=== PATIENT | female | born 1935 | race Caucasian/White ===

== ENCOUNTER 2021-01-23 22:11 | Emergency (ER) | payer OTHER | END 2021-01-24 00:16 | LOC: ERS 22:11 | DX: E11.65 Type 2 diabetes mellitus with hyperglycemia (principal); I10 Essential (primary) hypertension; E03.9 Hypothyroidism, unspecified | CPT/HCPCS: 36416; 99284 ==

== ENCOUNTER 2021-08-08 15:10 | Inpatient (IN) | payer MEDICARE, OTHER ==
[~2021-08-08 15:10] MED LIST: Iopamidol-370 76% 500 ML 1 ML ONE
[2021-08-08] MEDS ORDERED: Ondansetron ODT 4 MG TAB ONE (15:29)
[2021-08-08 16:19] LABS: #Basophils 0.1 thou/uL (0.0-0.2); #Eosinphils 0.3 thou/uL (0.0-0.7); #Lymphocytes 0.8 thou/uL (1.20-3.40); #Monocytes 0.4 thou/uL (0.11-0.59); #Neutrophils 7.9 thou/uL (1.40-6.50); %Basophils 0.6 % (0.0-1.0); %Lymphocytes 8.7 % (21.0-51.0); %Monocytes 4.5 % (0.0-10.0); %Neutrophils 83.2 % (42.0-75.0); Hemoglobin 11.9 g/dL (12.0-16.0); Mean Corpuscular Hemoglobin 30.9 pg (27.0-31.0); Mean Corpuscular Volume 96.7 fL (78.0-98.0); Mean Platelet Volume 8.6 fL (7.4-10.4); Platelet Count 226 thou/uL (130-400); RBC Distribution Width 13.2 % (11.5-14.5); Red Blood Cell (RBC) Count 3.86 mill/uL (4.20-5.40); White Blood Cell (WBC) Count 9.5 thou/uL (4.8-10.8)
[2021-08-08 16:27] LABS: PTT 24.2 sec (22.9-36.1); Prothrombin Time 11.8 sec (12.0-14.7)
[2021-08-08 16:28] LABS: INR-International Normal Ratio 0.9
[2021-08-08] MEDS ORDERED: cefTRIAXone\\ROCEPHIN 2 GM VIAL ONE (16:30)
[2021-08-08 16:41] LABS: ALT (SGPT) 16 U/L (8-55); AST (SGOT) 22 U/L (5-34); Albumin 4.3 g/dL (3.4-4.8); Alkaline Phosphatase 60 U/L (40-110); Anion Gap 15 mmol/L (10-20); BUN (Urea Nitrogen) 28 mg/dL (9.8-20.1); Bilirubin, Total 0.6 mg/dL (0.2-1.2); Calc. Creatinine Clearance 0 mL/min (70-130); Calcium 9.5 mg/dL (7.8-10.44); Carbon Dioxide 27 mmol/L (23-31); Chloride 97 mmol/L (98-107); Globulin 3.2 g/dL (2.4-3.5); Glucose 245 mg/dL (83-110); Magnesium 1.8 mg/dL (1.6-2.6); Potassium 4.4 mmol/L (3.5-5.1); Protein, Total 7.5 g/dL (5.8-8.1); Sodium 135 mmol/L (136-145)
[2021-08-08] MEDS ORDERED: hydrALAZINE 20 MG/ML VIAL ONE (17:25)
[2021-08-08] MEDS ORDERED: Moisturizing Cream (Eucerin) 113 GM JAR TOP PRN (17:41)
[2021-08-08] MEDS ORDERED: hydrALAZINE 20 MG/ML VIAL SLOW IVP PRN (17:41)
[2021-08-08] MEDS ORDERED: Ondansetron ODT 4 MG TAB PO PRN (17:41)
[2021-08-08] MEDS ORDERED: Acetaminophen 325 MG TAB PO PRN (17:41)
[2021-08-08] MEDS ORDERED: Ondansetron PF 4 MG/2 ML Vial IVP PRN (17:41)
[2021-08-08] MEDS ORDERED: Acetaminophen 650 MG Suppository PR PRN (17:41)
[2021-08-08] MEDS ORDERED: Labetalol HCl 100 MG/20 ML VIAL SLOW IVP PRN (17:41)
[2021-08-08] MEDS ORDERED: Artificial Tear Sol 15 ML BOT EA EYE PRN (17:41)
[2021-08-08] MEDS ORDERED: Senokot S 8.6-50 MG TAB PO PRN (17:41)
[2021-08-08] MEDS ORDERED: Bisacodyl 5 MG TAB PO PRN (17:41)
[2021-08-08] MEDS ORDERED: Enoxaparin Sodium 40 MG/0.4 ML SYRINGE SC SCH (17:45)
[2021-08-08 18:19] LABS: Bacteria/HPF None Seen HPF (None Seen); Bilirubin Negative (Negative); Blood, Urine Negative (Negative); Clarity Clear (Clear); Glucose, Urine (Dipstick) 300 mg/dL (Negative); Ketone, Urine Trace mg/dL (Negative); Leukocyte Negative Leu/uL (Negative); Nitrite Negative (Negative); Protein, Urine (Dipstick) 20 mg/dL (Neg-Trace); RBC/HPF 0-3 HPF (0-3); Specific Gravity, Urine 1.028 (1.002-1.036); Squamous Epithelial None Seen HPF (0-3); Urobilinogen Normal mg/dL (Less than 2); WBC/HPF 0-3 HPF (0-3); pH, Urine 7.5 (5.0-9.0)
[2021-08-08 18:43] LABS: Troponin I 0.121 ng/mL (< 0.028)
[2021-08-08] MEDS ORDERED: Dextrose 5% in Water 1,000 ML IV PRN (19:37)
[2021-08-08] MEDS ORDERED: Dextrose 50% Abboject 50 ML SYRINGE SLOW IVP PRN (19:37)
[2021-08-08] MEDS ORDERED: Lactated Ringer's 1,000 ML IV SCH ×2 (19:45→20:00)
[2021-08-08] MEDS ORDERED: Piperacillin/Tazobactam 3.375 GM in Sodium Chloride 0.9% 100 ML IVPB SCH ×2 (20:00→23:59)
[2021-08-08 20:16] LABS: Actual Bicarbonate (HCO3a) 25.8 mEq/L (22-28); Analyzer IN Cardio ER; Base Excess (BEa) 1.5 mEq/L (-2.0 to +3.0); CO2 Tension 39.4 mmHg (35.0-45.0); Calcium, Ionized (arterial) 1.12 mmol/L (1.12-1.30); Carboxyhemoglobin (COHb) 0.3 gm% (0.0-3.0); Hemoglobin (Hb) 12.3 g/dL (12.0-16.0); O2 Tension (PaO2), arterial 92.4 mmHg (> 60.0); Potassium - ABG Lab 3.98 mmol/L (3.70-5.30); pH, Arterial 7.43 (7.35-7.45)
[2021-08-08 20:17] LABS: Puncture Site RRA
[2021-08-08 20:34] LABS: Magnesium 1.8 mg/dL (1.6-2.6); Phosphorus 3.3 mg/dL (2.3-4.7)
[2021-08-08 20:40] LABS: Troponin I 0.282 ng/mL (< 0.028)
[2021-08-08] MEDS ORDERED: Enoxaparin Sodium 60 MG/0.6 ML SYRINGE SC SCH (21:00)
[2021-08-08] MEDS ORDERED: Famotidine/PF 20 mg/2ml Vial SLOW IVP SCH (21:00)
[2021-08-08] MEDS ORDERED: Famotidine 40 MG/4 ML VIAL SLOW IVP SCH (21:00)
[2021-08-08 22:12] VITALS: BMI 21.1
[2021-08-08 23:34] LABS: SARS-CoV-2 NAA Rapid Test Not Detected (NotDetected)
[2021-08-08 23:43] LABS: Troponin I 0.931 ng/mL (< 0.028)
[2021-08-09] MEDS: Lactated Ringer's 1,000 ML IV SCH ×3 (01:56→23:39)
[2021-08-09] MEDS: Piperacillin/Tazobactam 3.375 GM in Sodium Chloride 0.9% 100 ML IVPB SCH ×3 (01:56→17:13)
[2021-08-09 04:56] LABS: #Lymphocytes 0.7 thou/uL (1.20-3.40); #Monocytes 0.4 thou/uL (0.11-0.59); #Neutrophils 7.3 thou/uL (1.40-6.50); %Basophils 0.2 % (0.0-1.0); %Eosinophils 0.3 % (0.0-10.0); %Lymphocytes 7.8 % (21.0-51.0); %Monocytes 5.1 % (0.0-10.0); %Neutrophils 86.6 % (42.0-75.0); Hemoglobin 10.9 g/dL (12.0-16.0); Mean Corpuscular HGB CONC 31.6 g/dL (32.0-36.0); Mean Corpuscular Hemoglobin 31.6 pg (27.0-31.0); Mean Platelet Volume 9.1 fL (7.4-10.4); Platelet Count 207 thou/uL (130-400); RBC Distribution Width 13.5 % (11.5-14.5); Red Blood Cell (RBC) Count 3.46 mill/uL (4.20-5.40); White Blood Cell (WBC) Count 8.5 thou/uL (4.8-10.8)
[2021-08-09 05:23] LABS: Hemoglobin A1c 8.2 % (4.0-6.0)
[2021-08-09 05:47] LABS: ALT (SGPT) 14 U/L (8-55); AST (SGOT) 40 U/L (5-34); Albumin 3.5 g/dL (3.4-4.8); Alkaline Phosphatase 50 U/L (40-110); Anion Gap 23 mmol/L (10-20); BUN (Urea Nitrogen) 28 mg/dL (9.8-20.1); Bilirubin, Total 0.6 mg/dL (0.2-1.2); Calc. Creatinine Clearance 30 mL/min (70-130); Calcium 8.9 mg/dL (7.8-10.44); Carbon Dioxide 18 mmol/L (23-31); Cardiac Risk 2.6 (Less than 4.5); Chloride 100 mmol/L (98-107); Cholesterol 189 mg/dl (< 200 Desired); Globulin 3.4 g/dL (2.4-3.5); Glucose 345 mg/dL (83-110); HDL Cholesterol 73 mg/dL (>60 Neg Risk); LDL Cholesterol, Calculated 106 mg/dL; Potassium 4.8 mmol/L (3.5-5.1); Protein, Total 6.9 g/dL (5.8-8.1); Sodium 136 mmol/L (136-145); Triglycerides 49 mg/dL (Less than 150)
[2021-08-09] MEDS: HumaLOG 300 UNITS/3 ML VIAL SC PRN ×4 (06:19→21:42)
[2021-08-09] MEDS ORDERED: Carvedilol 3.125 MG TAB PO SCH (07:30)
[2021-08-09] MEDS ORDERED: Nitroglycerin 0.4 MG TAB (25 Tab Bottle) SL PRN (08:16)
[2021-08-09] MEDS ORDERED: Non-Formulary Item 1 EACH (Levothyroxine Sodium [Levothyroxine] 100 MCG Capsule) PO SCH (09:00)
[2021-08-09] MEDS ORDERED: Enoxaparin Sodium 40 MG/0.4 ML SYRINGE SC SCH (09:00)
[2021-08-09] MEDS: Aspirin Chewable 81 MG TAB PO SCH (09:54)
[2021-08-09] MEDS: Aspirin 300 MG Suppository PR SCH (09:54)
[2021-08-09] MEDS: Carvedilol 3.125 MG TAB PO SCH ×3 (09:54→17:13)
[2021-08-09] MEDS: Multivit, Therapeutic 1 TAB PO SCH (09:55)
[2021-08-09] MEDS: Clopidogrel Bisulfate 75 MG TAB PO SCH ×2 (09:55→12:01)
[2021-08-09] MEDS: Lisinopril 20 MG TAB PO SCH (09:55)
[2021-08-09] MEDS: Famotidine 20 MG TAB PO SCH (09:55)
[2021-08-09] MEDS: Insulin Glargine 30 UNITS/0.3 ML VIAL SC SCH (09:55)
[2021-08-09 12:17] LABS: Troponin I 2.824 ng/mL (< 0.028)
[2021-08-09] MEDS ORDERED: cefTRIAXone\\ROCEPHIN 1 GM in Sodium Chloride 0.9% 100 ML IVPB SCH (16:00)
[2021-08-09] MEDS ORDERED: Glycerin Adult Supp. (24 ct jar) PR PRN (16:29)
[2021-08-09] MEDS: Atorvastatin Calcium 10 MG TAB PO SCH (20:47)
[2021-08-09] MEDS: Donepezil HCl 5 MG TAB PO SCH (20:47)
[2021-08-10] MEDS: Piperacillin/Tazobactam 3.375 GM in Sodium Chloride 0.9% 100 ML IVPB SCH ×3 (01:22→17:43)
[2021-08-10 04:45] LABS: #Basophils 0.1 thou/uL (0.0-0.2); #Eosinphils 0.3 thou/uL (0.0-0.7); #Lymphocytes 0.8 thou/uL (1.20-3.40); #Monocytes 0.9 thou/uL (0.11-0.59); #Neutrophils 7.6 thou/uL (1.40-6.50); %Basophils 1.1 % (0.0-1.0); %Eosinophils 2.9 % (0.0-10.0); %Lymphocytes 8.2 % (21.0-51.0); %Monocytes 9.3 % (0.0-10.0); %Neutrophils 78.5 % (42.0-75.0); Hemoglobin 9.9 g/dL (12.0-16.0); Mean Corpuscular HGB CONC 32.8 g/dL (32.0-36.0); Mean Corpuscular Volume 97.7 fL (78.0-98.0); Mean Platelet Volume 8.6 fL (7.4-10.4); Platelet Count 177 thou/uL (130-400); RBC Distribution Width 13.4 % (11.5-14.5); Red Blood Cell (RBC) Count 3.07 mill/uL (4.20-5.40); White Blood Cell (WBC) Count 9.6 thou/uL (4.8-10.8)
[2021-08-10 05:18] LABS: ALT (SGPT) 11 U/L (8-55); AST (SGOT) 26 U/L (5-34); Albumin 3.2 g/dL (3.4-4.8); Alkaline Phosphatase 41 U/L (40-110); Anion Gap 17 mmol/L (10-20); BUN (Urea Nitrogen) 30 mg/dL (9.8-20.1); Bilirubin, Total 1.1 mg/dL (0.2-1.2); Calc. Creatinine Clearance 35 mL/min (70-130); Calcium 8.2 mg/dL (7.8-10.44); Carbon Dioxide 24 mmol/L (23-31); Chloride 101 mmol/L (98-107); Globulin 2.4 g/dL (2.4-3.5); Glucose 166 mg/dL (83-110); Potassium 3.2 mmol/L (3.5-5.1); Protein, Total 5.6 g/dL (5.8-8.1); Sodium 139 mmol/L (136-145)
[2021-08-10] MEDS: Levothyroxine Sodium 100 MCG TAB PO SCH (05:32)
[2021-08-10] MEDS: HumaLOG 300 UNITS/3 ML VIAL SC PRN ×5 (05:35→20:40)
[2021-08-10] MEDS ORDERED: Potassium Chloride 20 MEQ TAB PO SCH (08:00)
[2021-08-10] MEDS: Enoxaparin Sodium 40 MG/0.4 ML SYRINGE SC SCH (09:37)
[2021-08-10] MEDS: Aspirin Chewable 81 MG TAB PO SCH (09:38)
[2021-08-10] MEDS: Aspirin 300 MG Suppository PR SCH (09:38)
[2021-08-10] MEDS: Clopidogrel Bisulfate 75 MG TAB PO SCH (09:39)
[2021-08-10] MEDS: Multivit, Therapeutic 1 TAB PO SCH (09:39)
[2021-08-10] MEDS: Lisinopril 20 MG TAB PO SCH (09:39)
[2021-08-10] MEDS: Famotidine 20 MG TAB PO SCH (09:39)
[2021-08-10] MEDS: Carvedilol 3.125 MG TAB PO SCH ×2 (09:39→17:43)
[2021-08-10] MEDS: Insulin Glargine 30 UNITS/0.3 ML VIAL SC SCH (09:40)
[2021-08-10] MEDS ORDERED: Polyethylene Glycol 3350 17 GM Packet PO SCH (10:30)
[2021-08-10] MEDS: Atorvastatin Calcium 10 MG TAB PO SCH (20:40)
[2021-08-10] MEDS: Donepezil HCl 5 MG TAB PO SCH (20:40)
[2021-08-11] MEDS: Piperacillin/Tazobactam 3.375 GM in Sodium Chloride 0.9% 100 ML IVPB SCH ×2 (02:23→09:57)
[2021-08-11] MEDS: Levothyroxine Sodium 100 MCG TAB PO SCH (05:33)
[2021-08-11] MEDS: HumaLOG 300 UNITS/3 ML VIAL SC PRN (05:33)
[2021-08-11 06:09] LABS: Anion Gap 18 mmol/L (10-20); BUN (Urea Nitrogen) 26 mg/dL (9.8-20.1); Calc. Creatinine Clearance 38 mL/min (70-130); Calcium 8.6 mg/dL (7.8-10.44); Carbon Dioxide 18 mmol/L (23-31); Chloride 106 mmol/L (98-107); Glucose 159 mg/dL (83-110); Potassium 4.3 mmol/L (3.5-5.1); Sodium 138 mmol/L (136-145)
[2021-08-11] MEDS ORDERED: Polyethylene Glycol 3350 17 GM Packet PO SCH (09:00)
[2021-08-11] MEDS: Enoxaparin Sodium 40 MG/0.4 ML SYRINGE SC SCH (09:57)
[2021-08-11] MEDS: Aspirin Chewable 81 MG TAB PO SCH (09:58)
[2021-08-11] MEDS: Multivit, Therapeutic 1 TAB PO SCH (09:58)
[2021-08-11] MEDS: Carvedilol 3.125 MG TAB PO SCH (09:58)
[2021-08-11] MEDS: Lisinopril 20 MG TAB PO SCH (09:58)
[2021-08-11] MEDS: Famotidine 20 MG TAB PO SCH (09:58)
[2021-08-11] MEDS: Clopidogrel Bisulfate 75 MG TAB PO SCH (09:58)
[2021-08-11] MEDS: Insulin Glargine 30 UNITS/0.3 ML VIAL SC SCH (09:59)
[2021-08-11 12:07] VITALS: BP 134/59; TEMP 98.4
== END 2021-08-11 15:32 | disposition home or self-care (01) | DRG 177 ==
LOC: ERS 15:10 → ERHOLD 17:17 → 2NO 20:14
PROVIDERS: ADMIT Family Medicine; ATTEND Internal Medicine
DX: J69.0 Pneumonitis due to inhalation of food and vomit (principal); I21.4 Non-ST elevation (NSTEMI) myocardial infarction; J96.01 Acute respiratory failure with hypoxia; I50.22 Chronic systolic (congestive) heart failure; G93.40 Encephalopathy, unspecified; I13.0 Hypertensive heart and chronic kidney disease with heart failure and stage 1 through stage 4 chronic kidney disease, or unspecified chronic kidney disease; Z20.822 Contact with and (suspected) exposure to COVID-19; F03.90 Unspecified dementia, unspecified severity, without behavioral disturbance, psychotic disturbance, mood disturbance, and anxiety; I25.10 Atherosclerotic heart disease of native coronary artery without angina pectoris; E03.9 Hypothyroidism, unspecified; E78.5 Hyperlipidemia, unspecified; E11.22 Type 2 diabetes mellitus with diabetic chronic kidney disease; Z66 Do not resuscitate; D63.1 Anemia in chronic kidney disease; N18.30 Chronic kidney disease, stage 3 unspecified; Z79.4 Long term (current) use of insulin; Z95.1 Presence of aortocoronary bypass graft; Z90.49 Acquired absence of other specified parts of digestive tract; Z98.890 Other specified postprocedural states; Z85.3 Personal history of malignant neoplasm of breast; Z80.9 Family history of malignant neoplasm, unspecified; Z79.890 Hormone replacement therapy; Z79.01 Long term (current) use of anticoagulants; Z79.899 Other long term (current) drug therapy; Z81.8 Family history of other mental and behavioral disorders; Z79.82 Long term (current) use of aspirin
CPT/HCPCS: 36415; 36416; 36600; 70450; 71045; 74177; 76705; 80048; 80053; 80061; 82805; 83036; 83605; 83690; 83735; 84100; 84145; 84443; 84484; 85025; 85379; 85610; 85730; 86850; 86900; 86901; 87040; 87086; 93005; 93010; 93306; 94760; J0360; J0696; J1650; J1815; J2543; J3490; J7120; Q0162; Q9967; U0002

== ENCOUNTER 2021-08-30 15:02 | Inpatient (IN) | payer MEDICARE, OTHER ==
[2021-08-30 16:45] LABS: ALT (SGPT) 13 U/L (8-55); AST (SGOT) 49 U/L (5-34); Alkaline Phosphatase 58 U/L (40-110); Anion Gap 24 mmol/L (10-20); BUN (Urea Nitrogen) 50 mg/dL (9.8-20.1); Bilirubin, Total 0.6 mg/dL (0.2-1.2); Calc. Creatinine Clearance 0 mL/min (70-130); Calcium 10.3 mg/dL (7.8-10.44); Carbon Dioxide 24 mmol/L (23-31); Chloride 92 mmol/L (98-107); Estimated GFR 21; Globulin 3.2 g/dL (2.4-3.5); Glucose 378 mg/dL (83-110); Lipase 31 U/L (8-78); Magnesium 1.9 mg/dL (1.6-2.6); Potassium 4.5 mmol/L (3.5-5.1); Protein, Total 7.2 g/dL (5.8-8.1); Sodium 135 mmol/L (136-145)
[2021-08-30 17:12] LABS: #Lymphocytes 0.7 thou/uL (1.20-3.40); #Monocytes 1.1 thou/uL (0.11-0.59); #Neutrophils 6.9 thou/uL (1.40-6.50); %Basophils 0.3 % (0.0-1.0); %Eosinophils 0.1 % (0.0-10.0); %Lymphocytes 7.5 % (21.0-51.0); %Monocytes 12.6 % (0.0-10.0); %Neutrophils 79.4 % (42.0-75.0); Hemoglobin 10.2 g/dL (12.0-16.0); Mean Corpuscular HGB CONC 32.2 g/dL (32.0-36.0); Mean Corpuscular Hemoglobin 30.7 pg (27.0-31.0); Mean Corpuscular Volume 95.4 fL (78.0-98.0); Mean Platelet Volume 8.8 fL (7.4-10.4); Platelet Count 238 thou/uL (130-400); RBC Distribution Width 13.1 % (11.5-14.5); Red Blood Cell (RBC) Count 3.33 mill/uL (4.20-5.40); White Blood Cell (WBC) Count 8.7 thou/uL (4.8-10.8)
[2021-08-30 17:21] LABS: CKMB 41.9 ng/mL (0-6.6)
[2021-08-30] MEDS ORDERED: Furosemide 40 MG/4 ML VIAL ONE (18:04)
[2021-08-30] MEDS ORDERED: cefTRIAXone\\ROCEPHIN 1 GM VIAL ONE (18:04)
[2021-08-30] MEDS ORDERED: Heparin 10,000 UNITS/ 10 ML VIAL ONE (18:07)
[2021-08-30] MEDS ORDERED: HumaLOG 300 UNITS/3 ML VIAL SC PRN (18:11)
[2021-08-30] MEDS ORDERED: Acetaminophen 325 MG TAB PO PRN (18:11)
[2021-08-30] MEDS ORDERED: Dextrose 50% Abboject 50 ML SYRINGE SLOW IVP PRN (18:11)
[2021-08-30] MEDS ORDERED: Senokot S 8.6-50 MG TAB PO PRN (18:11)
[2021-08-30] MEDS ORDERED: Dextrose 5% in Water 1,000 ML IV PRN (18:11)
[2021-08-30 18:24] LABS: Bilirubin Negative (Negative); Blood, Urine Negative (Negative); Clarity Clear (Clear); Glucose, Urine (Dipstick) >=1000 mg/dL (Negative); Ketone, Urine 10 mg/dL (Negative); Leukocyte Negative Leu/uL (Negative); Nitrite Negative (Negative); Protein, Urine (Dipstick) Negative (Neg-Trace); Urobilinogen Normal mg/dL (Less than 2)
[2021-08-30] MEDS ORDERED: Heparin 25,000 units/D5W 500 ML ONE (19:03)
[2021-08-30 19:17] LABS: Lactic Acid 2.4 mmol/L (0.5-2.2)
[2021-08-30] MEDS ORDERED: Lantus 1000 UNITS/10 ML VIAL SC SCH (21:00)
[2021-08-30] MEDS ORDERED: Atorvastatin Calcium 10 MG TAB PO SCH (21:00)
[2021-08-30 21:16] VITALS: BMI 19.2
[2021-08-30] MEDS ORDERED: Heparin 25,000 units/D5W 500 ML IV SCH (21:30)
[2021-08-30] MEDS: Donepezil HCl 5 MG TAB PO SCH (21:52)
[2021-08-30] MEDS: Famotidine 20 MG TAB PO SCH (21:52)
[2021-08-30] MEDS: HumaLOG 300 UNITS/3 ML VIAL SC PRN (21:53)
[2021-08-30] MEDS: Heparin 10,000 UNITS/ 10 ML VIAL SLOW IVP SCH (21:54)
[2021-08-30] MEDS ORDERED: Insulin Glargine 30 UNITS/0.3 ML VIAL SC SCH (23:59)
[2021-08-31 05:00] LABS: #Basophils 0.1 thou/uL (0.0-0.2); #Eosinphils 0.2 thou/uL (0.0-0.7); #Lymphocytes 1.1 thou/uL (1.20-3.40); #Monocytes 1.1 thou/uL (0.11-0.59); #Neutrophils 8.3 thou/uL (1.40-6.50); %Basophils 0.6 % (0.0-1.0); %Eosinophils 1.6 % (0.0-10.0); %Lymphocytes 10.1 % (21.0-51.0); %Monocytes 10.4 % (0.0-10.0); %Neutrophils 77.4 % (42.0-75.0); Hemoglobin 10.1 g/dL (12.0-16.0); Mean Corpuscular HGB CONC 32.6 g/dL (32.0-36.0); Mean Corpuscular Hemoglobin 31.3 pg (27.0-31.0); Mean Corpuscular Volume 96.1 fL (78.0-98.0); Mean Platelet Volume 8.5 fL (7.4-10.4); Platelet Count 233 thou/uL (130-400); RBC Distribution Width 13.1 % (11.5-14.5); Red Blood Cell (RBC) Count 3.21 mill/uL (4.20-5.40); White Blood Cell (WBC) Count 10.8 thou/uL (4.8-10.8)
[2021-08-31 05:03] LABS: Anion Gap 17 mmol/L (10-20); BUN (Urea Nitrogen) 45 mg/dL (9.8-20.1); Calc. Creatinine Clearance 21 mL/min (70-130); Calcium 9.6 mg/dL (7.8-10.44); Carbon Dioxide 29 mmol/L (23-31); Chloride 97 mmol/L (98-107); Estimated GFR 26; Potassium 3.4 mmol/L (3.5-5.1); Sodium 140 mmol/L (136-145)
[2021-08-31 05:25] LABS: Glucose 55 mg/dL (83-110)
[2021-08-31] MEDS: Heparin 10,000 UNITS/ 10 ML VIAL SLOW IVP SCH (05:38)
[2021-08-31] MEDS: Levothyroxine Sodium 100 MCG TAB PO SCH (05:39)
[2021-08-31] MEDS ORDERED: Potassium Chloride 20 MEQ TAB PO SCH ×2 (07:45→09:00)
[2021-08-31] MEDS: Aspirin Chewable 81 MG TAB PO SCH (08:53)
[2021-08-31] MEDS: Clopidogrel Bisulfate 75 MG TAB PO SCH (08:53)
[2021-08-31] MEDS: Carvedilol 3.125 MG TAB PO SCH ×2 (08:53→17:26)
[2021-08-31] MEDS ORDERED: Furosemide 40 MG/4 ML VIAL SLOW IVP SCH (09:00)
[2021-08-31] MEDS ORDERED: Enoxaparin Sodium 40 MG/0.4 ML SYRINGE SC SCH (09:00)
[2021-08-31] MEDS: HumaLOG 300 UNITS/3 ML VIAL SC PRN ×2 (11:24→17:26)
[2021-08-31] MEDS ORDERED: Lactated Ringer's 1,000 ML IV SCH (11:45)
[2021-08-31] MEDS ORDERED: Insulin Glargine 30 UNITS/0.3 ML VIAL SC SCH ×2 (21:00)
[2021-08-31] MEDS: Famotidine 20 MG TAB PO SCH (21:20)
[2021-08-31] MEDS: Donepezil HCl 5 MG TAB PO SCH (21:20)
[2021-08-31] MEDS: Insulin Glargine 30 UNITS/0.3 ML VIAL SC SCH (21:20)
[2021-08-31] MEDS: Atorvastatin Calcium 40 MG TAB PO SCH (21:20)
[2021-09-01 03:37] LABS: Anion Gap 14 mmol/L (10-20); BUN (Urea Nitrogen) 31 mg/dL (9.8-20.1); Calc. Creatinine Clearance 32 mL/min (70-130); Calcium 9.2 mg/dL (7.8-10.44); Carbon Dioxide 29 mmol/L (23-31); Chloride 101 mmol/L (98-107); Estimated GFR 44; Potassium 3.8 mmol/L (3.5-5.1); Sodium 140 mmol/L (136-145)
[2021-09-01] MEDS: Heparin 10,000 UNITS/ 10 ML VIAL SLOW IVP SCH (03:38)
[2021-09-01 04:00] LABS: Glucose 48 mg/dL (83-110)
[2021-09-01] MEDS: Levothyroxine Sodium 100 MCG TAB PO SCH (06:29)
[2021-09-01] MEDS: Carvedilol 3.125 MG TAB PO SCH ×2 (09:58→17:42)
[2021-09-01] MEDS: Clopidogrel Bisulfate 75 MG TAB PO SCH (09:58)
[2021-09-01] MEDS: Furosemide 40 MG TAB PO SCH (09:58)
[2021-09-01] MEDS: Aspirin Chewable 81 MG TAB PO SCH (09:58)
[2021-09-01] MEDS: Potassium Chloride 20 MEQ TAB PO SCH (09:58)
[2021-09-01] MEDS: Insulin Glargine 30 UNITS/0.3 ML VIAL SC SCH (21:53)
[2021-09-01] MEDS: Famotidine 20 MG TAB PO SCH (21:53)
[2021-09-01] MEDS: Atorvastatin Calcium 40 MG TAB PO SCH (21:53)
[2021-09-01] MEDS: Donepezil HCl 5 MG TAB PO SCH (21:53)
[2021-09-02] MEDS: HumaLOG 300 UNITS/3 ML VIAL SC PRN (06:19)
[2021-09-02] MEDS: Levothyroxine Sodium 100 MCG TAB PO SCH (06:22)
[2021-09-02] MEDS: Aspirin Chewable 81 MG TAB PO SCH (11:08)
[2021-09-02] MEDS: Clopidogrel Bisulfate 75 MG TAB PO SCH (11:08)
[2021-09-02] MEDS: Furosemide 40 MG TAB PO SCH (11:08)
[2021-09-02] MEDS: Carvedilol 3.125 MG TAB PO SCH (11:09)
[2021-09-02] MEDS: Potassium Chloride 20 MEQ TAB PO SCH (11:09)
[2021-09-02 12:06] VITALS: BP 128/54; TEMP 98.6
== END 2021-09-02 13:10 | DRG 682 ==
LOC: ERS 15:02 → 2NO 18:11
PROVIDERS: ADMIT Hospitalist; ATTEND Internal Medicine
DX: N17.9 Acute kidney failure, unspecified (principal); G93.41 Metabolic encephalopathy; I21.A1 Myocardial infarction type 2; I50.42 Chronic combined systolic (congestive) and diastolic (congestive) heart failure; F03.90 Unspecified dementia, unspecified severity, without behavioral disturbance, psychotic disturbance, mood disturbance, and anxiety; Z20.822 Contact with and (suspected) exposure to COVID-19; Z66 Do not resuscitate; E11.65 Type 2 diabetes mellitus with hyperglycemia; E11.649 Type 2 diabetes mellitus with hypoglycemia without coma; E03.9 Hypothyroidism, unspecified; E78.5 Hyperlipidemia, unspecified; K80.20 Calculus of gallbladder without cholecystitis without obstruction; I25.10 Atherosclerotic heart disease of native coronary artery without angina pectoris; E87.6 Hypokalemia; I25.5 Ischemic cardiomyopathy; I11.0 Hypertensive heart disease with heart failure; Z95.1 Presence of aortocoronary bypass graft; Z85.3 Personal history of malignant neoplasm of breast; Z90.11 Acquired absence of right breast and nipple; Z92.21 Personal history of antineoplastic chemotherapy; Z79.899 Other long term (current) drug therapy; Z79.82 Long term (current) use of aspirin; Z79.02 Long term (current) use of antithrombotics/antiplatelets; Z79.890 Hormone replacement therapy; Z79.84 Long term (current) use of oral hypoglycemic drugs; Z79.4 Long term (current) use of insulin; Z90.710 Acquired absence of both cervix and uterus; Z90.49 Acquired absence of other specified parts of digestive tract; Z83.3 Family history of diabetes mellitus; Z80.9 Family history of malignant neoplasm, unspecified
CPT/HCPCS: 36415; 36416; 51701; 70450; 71045; 76705; 80048; 80053; 81003; 82553; 83605; 83690; 83735; 83880; 84484; 85025; 85730; 87040; 87086; 93005; 93306; 96365; 96375; J0696; J1644; J1815; J1940; J7120; J7999; U0003; U0005

== ENCOUNTER 2021-11-08 02:40 | Emergency (ER) | payer MEDICARE, OTHER ==
[2021-11-08] MEDS ORDERED: cefTRIAXone\\ROCEPHIN 1 GM VIAL ONE (03:03)
[2021-11-08 03:21] LABS: #Basophils 0.1 thou/uL (0.0-0.2); #Eosinphils 0.4 thou/uL (0.0-0.7); #Lymphocytes 1.3 thou/uL (1.20-3.40); #Monocytes 0.5 thou/uL (0.11-0.59); #Neutrophils 4.5 thou/uL (1.40-6.50); %Basophils 0.8 % (0.0-1.0); %Monocytes 6.8 % (0.0-10.0); %Neutrophils 67.4 % (42.0-75.0); Mean Corpuscular HGB CONC 32.4 g/dL (32.0-36.0); Mean Corpuscular Volume 92.7 fL (78.0-98.0); Mean Platelet Volume 9.2 fL (7.4-10.4); Platelet Count 168 thou/uL (130-400); RBC Distribution Width 13.8 % (11.5-14.5); Red Blood Cell (RBC) Count 3.32 mill/uL (4.20-5.40); White Blood Cell (WBC) Count 6.7 thou/uL (4.8-10.8)
[2021-11-08 03:24] LABS: INR-International Normal Ratio 0.9; PTT 27.2 sec (22.9-36.1); Prothrombin Time 12.6 sec (12.0-14.7)
[2021-11-08 03:27] LABS: ALT (SGPT) 15 U/L (8-55); AST (SGOT) 20 U/L (5-34); Albumin 3.4 g/dL (3.4-4.8); Alkaline Phosphatase 46 U/L (40-110); Anion Gap 13 mmol/L (10-20); BUN (Urea Nitrogen) 30 mg/dL (9.8-20.1); Bilirubin, Total 0.6 mg/dL (0.2-1.2); Calc. Creatinine Clearance 0 mL/min (70-130); Calcium 8.5 mg/dL (7.8-10.44); Carbon Dioxide 24 mmol/L (23-31); Chloride 103 mmol/L (98-107); Estimated GFR 42; Globulin 2.6 g/dL (2.4-3.5); Glucose 262 mg/dL (83-110); Lipase 62 U/L (8-78); Magnesium 1.6 mg/dL (1.6-2.6); Potassium 3.4 mmol/L (3.5-5.1); Sodium 137 mmol/L (136-145)
[2021-11-08 03:51] LABS: Bilirubin Negative (Negative); Blood, Urine Negative (Negative); Clarity Clear (Clear); Glucose, Urine (Dipstick) 500 mg/dL (Negative); Ketone, Urine Negative (Negative); Leukocyte Negative Leu/uL (Negative); Nitrite Negative (Negative); Protein, Urine (Dipstick) Negative (Neg-Trace); Specific Gravity, Urine 1.013 (1.002-1.036); Urobilinogen Normal mg/dL (Less than 2)
[2021-11-08 04:05] LABS: SARS-CoV-2 NAA Rapid Test Not Detected (NotDetected)
== END 2021-11-08 08:50 | disposition home or self-care (01) ==
LOC: ERS 02:40
DX: J69.0 Pneumonitis due to inhalation of food and vomit (principal); E11.649 Type 2 diabetes mellitus with hypoglycemia without coma; E03.9 Hypothyroidism, unspecified; F03.90 Unspecified dementia, unspecified severity, without behavioral disturbance, psychotic disturbance, mood disturbance, and anxiety; Z20.822 Contact with and (suspected) exposure to COVID-19
CPT/HCPCS: 51701; 70450; 71045; 81003; 82962; 83605; 83690; 83735; 83880; 84484; 85610; 85730; 87040; 87086; 93005; 96374; 96375; 99285; U0002; 36415; 36416; 80053; 84443; 85025; J0696

== ENCOUNTER 2024-11-04 16:43 | Emergency (ER) | payer MEDICARE, OTHER ==
[2024-11-04 17:36] LABS: #Basophils 0.07 10x3/uL (0.0-0.2); #Eosinophils 0.32 10x3/uL (0.0-0.7); #Monocytes 0.90 10x3/uL (0.11-0.59); #Neutrophils 5.89 10x3/uL (1.40-6.50); %Basophils 0.9 % (0.0-1.0); %Eosinophils 3.9 % (0.0-10.0); %Lymphocytes 12.3 % (21.0-51.0); %Monocytes 11.0 % (0.0-10.0); %Neutrophils 71.7 % (42.0-75.0); Hematocrit 31.9 % (36.0-47.0); Hemoglobin 9.8 g/dL (12.0-16.0); Mean Corpuscular Hemoglobin 28.1 pg (27.0-31.0); Mean Corpuscular Volume 91.4 fL (78.0-98.0); Platelet Count 195 10x3/uL (130-400); Red Blood Cell (RBC) Count 3.49 mill/uL (4.20-5.40); White Blood Cell (WBC) Count 8.21 10x3/uL (4.8-10.8)
[2024-11-04 18:02] LABS: ALT (SGPT) 14 U/L (Less than 34); AST (SGOT) 25 U/L (11-34); Albumin 3.2 g/dL (3.1-4.5); Alkaline Phosphatase 55 U/L (40-110); Anion Gap 15 mmol/L (10-20); BUN (Urea Nitrogen) 21 mg/dL (9.8-20.1); Bilirubin, Total 0.3 mg/dL (0.3-1.2); Calc. Creatinine Clearance 0 mL/min (70-130); Calcium 8.7 mg/dL (7.8-10.44); Carbon Dioxide 22 mmol/L (23-31); Chloride 105 mmol/L (98-107); Globulin 3.4 g/dL (2.4-3.5); Glucose 141 mg/dL (83-110); Lipase 45 U/L (8-78); Magnesium 1.7 mg/dL (1.6-2.6); Potassium 4.3 mmol/L (3.5-5.1); Sodium 138 mmol/L (136-145)
[2024-11-04 19:26] LABS: Bacteria/HPF None Seen HPF (None Seen); CAUTI Indications for Culture Alt mental st,lethar; Glucose, Urine (Dipstick) Normal (Negative); Leukocyte Negative Leu/uL (Negative); Protein, Urine (Dipstick) Negative (Neg-Trace); RBC/HPF 0-3 HPF (0-3); Specific Gravity, Urine 1.008 (1.002-1.036); WBC/HPF 0-3 HPF (0-3)
[2024-11-04 19:27] LABS: Urine Culture Reflex No No
== END 2024-11-04 22:08 | disposition home or self-care (01) ==
LOC: ERS 16:43
DX: S22.42XA Multiple fractures of ribs, left side, initial encounter for closed fracture (principal); S60.222A Contusion of left hand, initial encounter; I10 Essential (primary) hypertension; E11.9 Type 2 diabetes mellitus without complications; W05.0XXA Fall from non-moving wheelchair, initial encounter
CPT/HCPCS: 36415; 36416; 70450; 71250; 72125; 80053; 81001; 83690; 83735; 84484; 85025; 93005